=== PATIENT | male | born 1945 | race Caucasian/White ===

== ENCOUNTER 2019-05-03 07:35 | Outpatient (CLI) | payer MEDICARE, BC ==
--- NOTE | 2019-05-03 11:21 | PET ---
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 Preoperative testing. TECHNIQUE: PET scanning with CT attenuation correction was performed from the vertex to the feet following the i ntravenous administration of 10.1 millicuries [id number]. COMPARISON: None. CORRELATION: None FINDINGS: No rosa m hypermetabolism is seen in the neck, chest, axillary, abdomen, pelvis or inguinal regions. No hypermetabolic pulmonary nodules, liver, adrenal or skeletal lesions are seen. There is physiologic activity in the GI and tracts and the brain. There is increased uptake in the right ACL. Clinical correlation is recommended. The CT scan used for attenuation correction demonstrates no evidence of pleural effusions or ascites. IMPRESSION: No evidence of distant metastases.
== END 2019-05-03 07:36 | disposition home or self-care (01) ==
LOC: PET 07:35
DX: Z01.818 Encounter for other preprocedural examination (principal); C67.8 Malignant neoplasm of overlapping sites of bladder
CPT/HCPCS: 78816; A9552

== ENCOUNTER → 2024-05-30 | Outpatient (CLI) | payer MEDICARE, BC ==
[2024-06-12 18:42] LABS: Anion Gap 15 mmol/L (10-20); BUN (Urea Nitrogen) 27 mg/dL (8.4-25.7); Calc. Creatinine Clearance 0 mL/min (70-130); Calcium 9.3 mg/dL (7.6-10.4); Carbon Dioxide 22 mmol/L (23-31); Chloride 106 mmol/L (98-107); Estimated GFR 75; Glucose 91 mg/dL (83-110); Potassium 3.2 mmol/L (3.5-5.1); Sodium 140 mmol/L (136-145)
[2024-06-12 18:43] LABS: %Basophils 0.8 % (0.0-1.0); %Eosinophils 4.2 % (0.0-10.0); %Lymphocytes 17.3 % (21.0-51.0); %Monocytes 8.5 % (0.0-10.0); %Neutrophils 68.9 % (42.0-75.0); Hematocrit 42.9 % (42.0-52.0); Hemoglobin 13.8 g/dL (14.0-18.0); Mean Corpuscular HGB CONC 32.2 g/dL (32.0-36.0); Mean Corpuscular Hemoglobin 30.7 pg (27.0-31.0); Mean Corpuscular Volume 95.3 fL (78.0-98.0); Mean Platelet Volume 9.8 fL (7.4-10.4); Platelet Count 202 10x3/uL (130-400); RBC Distribution Width 14.2 % (11.5-14.5)
[2024-06-12 18:44] LABS: #Basophils 0.05 10x3/uL (0.0-0.2); INR-International Normal Ratio 1.1; PTT 36.5 sec (22.9-36.1); Prothrombin Time 14.7 sec (12.0-14.7)
== END ==
LOC: LABBT 11:44
PROVIDERS: ATTEND Internal Medicine Cardiovascular Disease
DX: Z01.812 Encounter for preprocedural laboratory examination (principal); I48.19 Other persistent atrial fibrillation
CPT/HCPCS: 80048; 85025; 85610; 85730

== ENCOUNTER 2024-06-05 06:27 | Day surgery (SDC) | payer MEDICARE, BC | END 2024-06-05 09:35 | disposition home or self-care (01) | LOC: SDC 06:27 | PROVIDERS: ATTEND Internal Medicine Cardiovascular Disease | PROC: 5A2204Z Restoration of Cardiac Rhythm, Single (ICD-10-PCS; principal; 2024-06-05) | DX: I48.19 Other persistent atrial fibrillation (principal); I10 Essential (primary) hypertension; I49.5 Sick sinus syndrome; E03.9 Hypothyroidism, unspecified; G47.33 Obstructive sleep apnea (adult) (pediatric); Z85.51 Personal history of malignant neoplasm of bladder; Z95.0 Presence of cardiac pacemaker; Z90.89 Acquired absence of other organs; Z91.09 Other allergy status, other than to drugs and biological substances; Z79.890 Hormone replacement therapy; Z79.01 Long term (current) use of anticoagulants; Z79.899 Other long term (current) drug therapy | CPT/HCPCS: 92960 ==